=== PATIENT | female | born 1945 | race Caucasian/White ===

== ENCOUNTER 2023-12-08 09:59 | Emergency (ER) | payer MEDICARE, SELFPAY ==
[2023-12-08] VITALS (12 sets, daily range): BP systolic 145–181; BP diastolic 53–102; PULSE 101–115; RESP 20–22; TEMP 37.1; O2SAT 90–94; BMI 29.0
--- NOTE | 2023-12-08 10:11 | XRR_ITS ---
PROCEDURE INFORMATION: Exam: XR Chest Exam date and time: 12/08/2023 10:19 AM Age: 78 years old Clinical indication: Dyspnea TECHNIQUE: Imaging protocol: Radiologic exam of the chest. Views: 1 view. COMPARISON: CR XR chest 2V* [id number] 10/28/2018 10:23 PM FINDINGS: Lungs: No focal consolidation. Pleural spaces: No large pleural effusion. No pneumothorax. Heart/Mediastinum: Cardiomediastinal silhouette is midline and normal in size. Vasculature: Calcifications of the aortic knob. Bones/joints: No acute osseous findings. XR/XR chest 1V portable [id number] IMPRESSION: No acute cardiopulmonary findings.
--- NOTE | 2023-12-08 10:28 | ECG_ITS ---
[facility] Test Date: 2023-12-08 Pat Name: Angela Knight Department: Room: Gender: Female Pcb Design Engineer: : 1945 Requested By: Ghanshyam Quiñonez Order Number: [id number] Héctor MD: Steven Mirza M.D. Measurements Intervals [place] Rate: 103 P: 81 [place]: 191 QRS: 81 QRSD: 96 T: 61 QT: 332 QTc: 436 Interpretive Statements SINUS TACHYCARDIA POSSIBLE LEFT ATRIAL ENLARGEMENT [-0.1mV P-WAVE IN V1/V2] MINIMAL ST DEPRESSION [0.025+ mV ST DEPRESSION] ABNORMAL RHYTHM ECG No previous ECG available for comparison Electronically Signed On 12-09-2023 14:17:08 UNDERWRITING ASSISTANT by Steven Mirza M.D. [id number]
[2023-12-08] MEDS: ipratropium-albuterol 3 mL Neb INHALATION (10:31)
[2023-12-08] MEDS: methylPREDNISolone sod succ 125 mg/2 mL INJ 60 MG IVP (10:40)
--- NOTE | 2023-12-08 11:01 | PC.PHAR ---
pt brought in all medication bottles-pts son marcela states that a lady named chandra [phone] sets up the pts medications called chandra she states for the last month that the pt has been setting up her own medications-chandra states she knows what the pt is taking and verified pts medications
[2023-12-08 11:06] LABS: Influenza A by IFA negative (Negative); Influenza B by IFA negative (Negative)
[2023-12-08 11:16] LABS: Basophils % 0.1 %; Hematocrit 39.9 % (36-47); Lymphocytes # 0.2 10^3/uL (0.8-4.8); Lymphocytes % 2.2 %; Mean Corpuscular HGB Conc 31.8 g/dL (30-55); Mean Corpuscular Hemoglobin 31.1 pg (27-33); Mean Corpuscular Volume 97.8 fl (85-98); Mean Platelet Volume 9.5 fL (7.4-10.4); Monocytes # 0.5 10^3/uL (0.2-0.9); Monocytes % 4.7 %; Neutrophils # 9.49 10^3/uL (1.8-7.7); Neutrophils % 92.8 %; Nucleated Red Blood Cells % 0 %; Platelet Count 208 10^3/cmm (157-399); Red Blood Count 4.08 10^6/uL (3.85-5.65); Red Cell Distribution Width 12.7 % (12.1-15.1); White Blood Count 10.23 10^3/uL (3.29-11.43)
[2023-12-08 11:37] LABS: Troponin(5th) Baseline 18 ng/L (0-10)
[2023-12-08 11:43] LABS: Alanine Aminotransferase 22 U/L (0-33); Albumin Level 4.2 g/dL (3.5-5.2); Alkaline Phosphatase 81 U/L (35-105); Anion Gap 16.4 (5-19); Aspartate Amino Transferase 29 U/L (0-32); Blood Urea Nitrogen 14 mg/dL (8-23); Calcium 8.6 mg/dL (8.5-10.5); Carbon Dioxide 28 mmol/L (22-29); Chloride 96 mmol/L (98-107); Creatinine Clr Calc Pharmacy 60.4198; Globulin 2.3 g/dL (1.3-4.6); Glucose 149 mg/dL (65-115); NT Pro B Type Natriuretic Pept 1100 pg/mL (0-450); Osmolality Calculated 285 mOsm/kg (285-295); Potassium 4.4 mmol/L (3.5-5.1); Sodium 136 mmol/L (136-145); Total Bilirubin 0.2 mg/dL (0.15-1.2); Total Protein 6.5 g/dL (6.6-8.7)
--- NOTE | 2023-12-08 12:11 | ECG_ITS ---
[facility] Test Date: 2023-12-08 Pat Name: Angela Knight Department: Room: Gender: Female Asset Analyst: : 1945 Requested By: Ghanshyam Quiñonez Order Number: [id number] Héctor MD: Steven Mirza M.D. Measurements Intervals [place] Rate: 100 P: 79 [place]: 204 QRS: 83 QRSD: 97 T: 66 QT: 325 QTc: 419 Interpretive Statements SINUS TACHYCARDIA POSSIBLE LEFT ATRIAL ENLARGEMENT [-0.1mV P-WAVE IN V1/V2] MINIMAL ST DEPRESSION [0.025+ mV ST DEPRESSION] ABNORMAL RHYTHM ECG Compared to ECG 12/08/2023 10:28:22 No significant changes Electronically Signed On 12-09-2023 14:19:52 LAPEL BASTER by Steven Mirza M.D. [id number]
[2023-12-08] MEDS: albuterol 2.5 mg/3 mL Neb 10 MG INHALATION (12:17)
[2023-12-08 13:24] LABS: Troponin 5 2HR 15.73 ng/L (0-10)
[2023-12-08 13:28] LABS: Troponin 5 2HR Delta -2.27 ABS# (0-10)
--- NOTE | 2023-12-08 13:30 | W.ED.SOB ---
HPI - SOB/Dyspnea General: Chief Complaint: Shortness of Breath/Dyspnea Stated Complaint: SOB Time Seen by Provider: 12/08/23 10:10 History of Present Illness: HPI Narrative: 78-year-old female presents to the emergency department with complaints of increased shortness of breath. She has a longstanding history of COPD and continues to smoke cigarettes. She is normally on 3 L nasal cannula but has had to increase her oxygen use to 4 L of her supplemental oxygen. She states that over the previous 4 days her shortness of breath has been getting worse. Her family does endorse that any exertion is causing her significantly increased dyspnea. She does appear to be having increased work of breathing and she does have a nonproductive dry cough. She denies chest pain dizziness or lightheaded feeling. She denies recent sick contacts. She denies nausea or vomiting. She was prescribed azithromycin and prednisone 1 day ago. Review of Systems General: Reports: 10 or more systems reviewed and unremarkable except in HPI and below Const: Reports: fatigue Resp: Reports: dyspnea, non-productive cough and wheezing PFSH ED PFSH: Medical History Depression GERD (gastroesophageal reflux disease) Hyperlipemia Hypertension Social History Smoking and tobacco/nicotine status: current every day tobacco/nicotine user Alcohol intake: current Alcohol intake frequency: holidays/special occasions only Alcohol type: wine Lives independently: Yes Marital status: / Physical Exam Narrative: EXAM NARRATIVE: Constitutional: the patient appears well nourished and of normal development. Vital signs as documented. No acute distress at present. Alert and oriented-to person, place, time and situation. Head, eyes, ears, nose, mouth, throat: Normocephalic, atraumatic. Pupils-equal, round, reactive to light. No scleral icterus. Normal-appearing external ears. Normal appearing nasal turbinates, no drainage. No obvious oral lesions, posterior oropharynx without erythema or exudates. Neck: Supple, trachea is midline, no lymphadenopathy, no jugular venous distension, thyromegaly, or carotid bruits. Carotid upstrokes are brisk bilaterally. Lungs: Coarse throughout prolonged expiratory phase noted, scattered bilateral expiratory wheezing. Symmetrical rise and fall of chest, obvious signs of increased work of breathing at present-to include accessory muscle usage. Cardiac: Sinus tachycardia positive S1, S2. No murmurs, rubs or gallops that I can appreciate Abdomen: Soft, non-tender to palpation, normal active bowel sounds to all quadrants. No palpable masses, no organomegaly and abdominal bruits. Extremities: 2+ pulses in the upper extremities that are equal bilaterally, 2+ pulses in the lower extremities that are equal bilaterally. Non-edematous. Moves all extremities well, sensation to all extremities are noted. Skin: Warm, dry, intact. Course Vital Signs: Vital signs: Vital Signs Temperature 98.7 F 12/08/23 10:03 Pulse Rate 110 H 12/08/23 13:11 Respiratory Rate 22 H 12/08/23 13:02 Blood Pressure 152/80 12/08/23 11:10 Pulse Oximetry 92 12/08/23 13:02 Oxygen Delivery Me thod Nasal Cannula 12/08/23 13:02 Oxygen Flow Rate 3 12/08/23 13:02 MDM - SOB/Dyspnea Medical Decision Making Physical exam completed and documented, I will obtain a CBC, CMP, blood cultures, procalcitonin and lactic acid, two-view chest x-ray and a urinalysis. Differential diagnosis includes community-acquired pneumonia, viral illness, acute exacerbation of chronic pulmonary disease. I have provided a DuoNeb breathing treatment as well as an hour-long breathing treatment and IV corticosteroids. Patient does have improved respiratory status and partial resolution of her expiratory wheezing. Medical Records I reviewed the patient's medical records. Lab Data I reviewed the patient's lab results. 12/08/23 11:08 12/08/23 11:08 Labs/Radiology: Radiology Impressions Chest X-Ray 12/08/23 10:11 IMPRESSION: No acute cardiopulmonary findings. Laboratory Results WBC 10.23 10^3/uL (3.29-11.43) 12/08/23 11:08 RBC 4.08 10^6/uL (3.85-5.65) 12/08/23 11:08 Hgb 12.70 g/dL (11.27-16.99) 12/08/23 11:08 Hct 39.9 % (36-47) 12/08/23 11:08 MCV 97.8 fl (85-98) 12/08/23 11:08 MCH 31.1 pg (27-33) 12/08/23 11:08 MCHC 31.8 g/dL (30-55) 12/08/23 11:08 RDW 12.7 % (12.1-15.1) 12/08/23 11:08 Plt Count 208 10^3/cmm (157-399) 12/08/23 11:08 MPV 9.5 fL (7.4-10.4) 12/08/23 11:08 Neut % (Auto) 92.8 % 12/08/23 11:08 Lymph % (Auto) 2.2 % 12/08/23 11:08 Pettis % (Auto) 4.7 % 12/08/23 11:08 Eos % (Auto) 0.0 % 12/08/23 11:08 Baso % (Auto) 0.1 % 12/08/23 11:08 Neut # (Auto) 9.49 10^3/uL (1.8-7.7) H 12/08/23 11:08 Lymph # (Auto) 0.2 10^3/uL (0.8-4.8) L 12/08/23 11:08 Pettis # (Auto) 0.5 10^3/uL (0.2-0.9) 12/08/23 11:08 Eos # (Auto) 0.0 10^3/uL (0.0-0.8) 12/08/23 11:08 Baso # (Auto) 0.0 10^3/uL (0.0-0.1) 12/08/23 11:08 Nucleated RBC % (auto) 0 % 12/08/23 11:08 Nucleated RBCs # 0.0 /100WBC 12/08/23 11:08 Sodium 136 mmol/L (136-145) 12/08/23 11:08 Potassium 4.4 mmol/L (3.5-5.1) 12/08/23 11:08 Chloride 96 mmol/L (98-107) L 12/08/23 11:08 Carbon Dioxide 28 mmol/L (22-29) 12/08/23 11:08 Anion Gap 16.4 (5-19) 12/08/23 11:08 BUN 14 mg/dL (8-23) 12/08/23 11:08 Creatinine 0.7 mg/dL (0.5-0.9) 12/08/23 11:08 GFR Calculation Not Reportable 12/08/23 11:08 Glucose 149 mg/dL (65-115) H 12/08/23 11:08 Calculated Osmolality 285 mOsm/kg (285-295) 12/08/23 11:08 Calcium 8.6 mg/dL (8.5-10.5) 12/08/23 11:08 Total Bilirubin 0.2 mg/dL (0.15-1.2) 12/08/23 11:08 AST 29 U/L (0-32) 12/08/23 11:08 ALT 22 U/L (0-33) 12/08/23 11:08 Alkaline Phosphatase 81 U/L (35-105) 12/08/23 11:08 Troponin T Baseline 18 ng/L (0-10) H 12/08/23 11:08 Troponin T 120 Minute 15.73 ng/L (0-10) H 12/08/23 12:54 Delta Troponin T -2.27 ABS# (0-10) L 12/08/23 12:54 NT-Pro-B Natriuret Pep 1100 pg/mL (0-450) H 12/08/23 11:08 Total Protein 6.5 g/dL (6.6-8.7) L 12/08/23 11:08 Albumin 4.2 g/dL (3.5-5.2) 12/08/23 11:08 Globulin 2.3 g/dL (1.3-4.6) 12/08/23 11:08 Influenza Type A Ag negative (Negative) 12/08/23 10:37 Influenza Type B Ag negative (Negative) 12/08/23 10:37 All radiology interpretation(s) finalized by discharge EKG Data EKG 1: Interpretation: Twelve-lead EKG obtained at 1028 and reviewed at 1030 demonstrates sinus tachycardia with a ventricular rate of 103 bpm, MO interval 191, QRS duration 96 QT 332 QTc 392 there is significant motion artifact although I cannot appreciate any ST elevation or depression to demonstrate acute ischemia or infarction at present. EKG 2: Interpretation: Twelve-lead EKG obtained at 1145 reviewed at 1149 demonstrates sinus tachycardia with a underlying first-degree AV block with a MO interval of 204, ventricular rate is 100 bpm, QRS duration 97, QT 325, QTc 382, at present there is no ST elevation or depression to demonstrate acute ischemia or infarction Discharge Plan Discharge Patient Disposition: Home Clinical Impression: COPD exacerbation, Anxiety Condition: Stable Prescriptions: No Action albuterol sulfate 2.5 mg /3 mL (0.083 %) solution for nebulization 2.5 mg INHALATION Q8H PRN (Reason: Shortness Of Breath) aspirin 81 mg tablet,delayed release (DR/EC) 81 mg PO DAILY omega-3 fatty acids 1,000 mg capsule 2,000 mg PO DAILY multivitamin Tablet 1 tab PO QAM azithromycin 500 mg tablet 500 mg PO DAILY 5 Days Qty: 5 0RF Rx Instructions: for 5 days (rx filled 12/07/23) Vitamin C 1,000 mg Tablet 1,000 mg PO DAILY zinc acetate 50 mg (zinc) Capsule 50 mg PO DAILY trazodone 50 mg tablet 50 mg PO BEDTIME PRN (Reason: Sleep) Zyrtec 10 mg Tablet 10 mg PO DAILY glipizide 5 mg tablet extended release 24hr 5 mg PO DAILY Vitamin B-12 1,000 mcg Tablet 1,000 mcg PO DAILY citalopram 20 mg tablet 20 mg PO DAILY pantoprazole 40 mg tablet,delayed release (DR/EC) 40 mg PO DAILY Calcium 600 with Vitamin D2 600-125 mg-unit Tablet 1 tab PO DAILY metoprolol succinate 25 mg tablet extended release 24 hr 25 mg PO DAILY albuterol sulfate 90 mcg/actuation HFA aerosol inhaler 2 puff INHALATION Q4H PRN (Reason: Shortness Of Breath) Tylenol PM Extra Strength 25-500 mg Tablet 1 tab PO BEDTIME PRN (Reason: Sleep) vitamin E 268 mg (400 unit) Capsule 1 cap PO DAILY Mucus Relief 400 mg Tablet 400 mg PO DAILY hydrochlorothiazide 12.5 mg tablet 12.5 mg PO QAM potassium gluconate 595 mg (99 mg) Tablet 595 mg PO DAILY Trelegy Ellipta 200-62.5-25 mcg blister with device 1 inh INHALATION DAILY prednisone 20 mg tablet 60 mg PO DAILY Rx Instructions: for 5 days (rx filled 12/07/23) Discharge Orders: Discharge ED (Routine); Ordered 12/08/23 Ordered By: Ghanshyam Quiñonez Referrals: Zuleima Patel APN [Primary Care Provider] - Discharge Diet: Usual diet Discharge Activity: Resume usual activity Patient Instructions: Opioid Safety, Pain Management Activity Restrictions/Additional Instructions: Activity Restrictions/Additional Instructions: [facility]. Please realize that you were seen in the Emergency Department and that we are providing you with an emergency medical screening exam and this may not be a complete and all inclusive of all the testing and or medical work-up that you may need to determine your ailment or severity of your illness. It is very important that you follow-up as instructed with your Primary care provider or Specialist for additional evaluation and to discuss your medical treatment plan. Coding Level of Care Code ED It Architecture Consultant for Nargis Blum
[2023-12-08] MEDS: LORazepam 1 mg Tablet PO (14:06)
== END 2023-12-08 14:33 | disposition home or self-care (01) ==
PROVIDERS: Emergency Provider Internal Medicine; PCP Nurse Practitioner Family
DX: J44.1 Chronic obstructive pulmonary disease with (acute) exacerbation (principal); F41.9 Anxiety disorder, unspecified; Z79.82 Long term (current) use of aspirin; Z79.84 Long term (current) use of oral hypoglycemic drugs; E78.5 Hyperlipidemia, unspecified; I10 Essential (primary) hypertension; Z72.0 Tobacco use
CPT/HCPCS: 36415; 71045; 80053; 83880; 84484; 85025; 87804; 93005; 94640; 96374; 99285; J2930; J7613